=== PATIENT | female | born 1965 | race Caucasian/White ===

== ENCOUNTER 2018-05-27 22:15 | Emergency (ER) | payer MEDICARE, MEDICAID, SELFPAY ==
[2018-05-27 22:15] VITALS: BP 194/109; PULSE 60; RESP 20; TEMP 36.7; O2SAT 97; BMI 18.8
--- NOTE | 2018-05-27 22:36 | DI.RAD.S_ITS ---
PROCEDURE: XR HAND RT MIN 3V INDICATIONS: hand pain, punched a door TECHNIQUE: 3 views of the hand(s) acquired. COMPARISON: None. FINDINGS: Bones: No fractures or dislocations. Carpal bones are normally aligned. No suspicious bony lesions. 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 Soft tissues: No suspicious soft tissue calcifications. IMPRESSION: No fracture or dislocation. Dictated by: Saulo Last M.D. on 05/28/2018 at 9:27 Approved by: Saulo Last M.D. on 05/28/2018 at 9:29
--- NOTE | 2018-05-27 23:10 | ED_ITS ---
HPI - Extremity Problem General Chief complaint: Extremity Problem,Nontraumatic Stated complaint: ETOH with hand pain Time Seen by Provider: 05/27/18 22:20 Source: patient and EMS Mode of arrival: EMS Limitations: no limitations History of Present Illness HPI Narrative: 52-year-old female smoker with known alcohol history presents by EMS due to intoxication and right hand pain. Police had been called to the patient's attention and they notified EMS because they are uncomfortable with her blood alcohol over 200 and the patient complained of hand pain after punching a wall a few days ago. The patient denies any other injury or today. She is otherwise well and free of complaints and states she did not want to come in MD Complaint: extremity pain Onset (ago): day(s) Pain Consistency: intermittent Location: right Quality: aching Radiation: none Relieving factors: nothing Exacerbating factors: range of motion Associated symptoms: denies other symptoms Review of Systems Constitutional Denies chills, Denies fever(s), Denies lethargy and Denies weakness Eyes Denies change in vision, Denies eye discharge, Denies irritation and Denies loss of vision ENT Ears, Nose, Mouth, and Throat: Denies change in voice, Denies neck pain and Denies sore throat Cardiovascular Denies chest pain, Denies irregular heart rhythm, Denies lightheadedness, Denies palpitations, Denies dyspnea, Denies dyspnea on exertion and Denies orthopnea Respiratory Denies cough, Denies dyspnea, Denies dyspnea on exertion and Denies wheezing Gastrointestinal Gastrointestinal: Denies abdominal pain, Denies change in bowel habits, Denies diarrhea, Denies nausea and Denies vomiting Genitourinary Denies hematuria, Denies flank pain, Denies urinary incontinence and Denies urinary urgency Musculoskeletal Reports limited range of motion and Denies neck pain Integumentary/Breasts Denies pruritus, Denies erythema, Denies rash and Denies wounds Neurologic Denies confusion, Denies loss of vision and Denies weakness Psychiatric Denies anxiety, Denies confusion, Denies depression, Denies homicidal ideation and Denies suicidal ideation Endocrine Denies palpitations Hematologic/Lymphatic Denies easy bruising Allergic/Immunologic Denies wheezing PFSH Social History Smoking Status: Current every day smoker Social History Smoking Status: Current every day smoker Exam Narrative Exam Narrative: GENERAL: 52F appears older than stated age, a bit unkempt and slight slurring of words. GCS 15 HEAD: Atraumatic. Normocephalic. No temporal or scalp tenderness. EYES: Pupils equal round and reactive. Extraocular motions intact. No scleral icterus. No injection or drainage. ENT: Poor dentition throughout. Nose without bleeding, purulent drainage or septal hematoma. Throat without erythema, tonsillar hypertrophy or exudate. Uvula midline. Airway patent. NECK: Trachea midline. No JVD or lymphadenopathy. Supple, nontender, no meningeal signs. CARDIOVASCULAR: Regular rate and rhythm without murmurs, gallops, or rubs. RESPIRATORY: Clear to auscultation. Breath sounds equal bilaterally. No wheezes, rales, or rhonchi. GASTROINTESTINAL: Abdomen soft, non-tender, nondistended. No hepato- splenomegaly, or palpable masses. No guarding. EXTREMITIES: No clubbing, cyanosis, or edema. Patient has pain to palpation of dorsal surface of hand, no abrasion, bruising or any external manifestation of injury. No numbness or tingling BACK: Nontender without deformity or crepitance. No flank tenderness. NEURO: AOx3. SKIN: No rash or erythema. Initial Vital Signs Initial Vital Signs: Vital Signs Temperature 98.1 F 05/27/18 22:15 Pulse Rate 60 05/27/18 22:15 Respiratory Rate 20 05/27/18 22:15 Blood Pressure 194/109 H 05/27/18 22:15 Pulse Oximetry 97 05/27/18 22:15 Course Orders Ordered: ED Orders 05/27/18 22:36 XR hand RT min 3V Stat Reevaluation(s) Reevaluation #1: patient observed for nearly 2 hours. She now demonstrates clear speech without slurring and walks with a steady gait. She has no ongoing complaints and wishes to leave. Vital Signs - 8 hr 05/27/18 22:15 05/28/18 00:50 Temperature 98.1 F Pulse Rate 60 88 Respiratory Rate 20 18 Blood Pressure 194/109 H 178/88 H Pulse Oximetry 97 98 MDM - Extremity (Nontraumatic) Lab Data Point of Care Testing Breathalizer 0.151 Imaging Data Hand Xray: Attestation: I personally reviewed and interpreted this imaging study as follows: My impression: NAP Discharge Plan Departure Patient Disposition: Home Clinical Impression: Alcohol abuse Contusion of hand Qualifiers: Encounter type: initial encounter Laterality: right Qualified Code(s): S60.221A - Contusion of right hand, initial encounter Discharge Date/Time: 05/28/18 00:53 Interventions: ED Discharge Assessment Last Done: 05/28/18 00:50 Instructions: Alcohol Use Disorder Activity Restrictions/Additional Instructions: *You have been diagnosed with [alcohol abuse, right hand contusion ] *What to do: *Take medications as directed *Follow up with your primary care provider in 2-3 days, call for an appointment. Let them know you were seen in the Emergency Department and that we ask that you be seen in follow up *Return to ER if you should have any new, worsening or concerning symptoms Referrals: [facility] [Outside] [facility] [Outside]
--- NOTE | 2018-05-27 23:11 | PC.NURSE ---
Helped patient off stretcher and to nurse's station to make phone call to family. Pt speaking clearly on phone and walked back to exam room without assistance.
[2018-05-28 00:50] VITALS: BP 178/88; PULSE 88; RESP 18; O2SAT 98
== END 2018-05-28 00:53 | disposition home or self-care (01) ==
PROVIDERS: Emergency Provider Emergency Medicine
DX: S60.221A Contusion of right hand, initial encounter (principal); F10.10 Alcohol abuse, uncomplicated; Y90.6 Blood alcohol level of 120-199 mg/100 ml
CPT/HCPCS: 73130; 82075; 99282; 99283